=== PATIENT | male | born 1990 | race Caucasian/White ===

== ENCOUNTER 2016-11-29 23:51 | Inpatient (IN) | payer OTHER ==
--- NOTE | ~2016-11-29 | DS ---
Unit #: [id number] #: [id number] Patient: ANDI HERNÁNDEZ [id number] [facility] [address] [place] [address] [id number] I MR#: [id number] NAME: ANDI HERNÁNDEZ. ROOM: 86 Age: 26 Sex: M Admission Date: 11/29/2016 : 1990 Discharge Date: 12/02/2016 Attending Physician: Tye Zuleta M.D. Primary Care Physician: Primary Care Physician No DISCHARGE SUMMARY REASON FOR ADMISSION Anid is a 26-year-old man with a history of chemical dependence. He relapsed on opioids and has also been using IV methamphetamine. He had suicidal ideation with a plan to jump from a bridge and could not contract for safety. He was admitted for stabilization. HOSPITAL COURSE The patient was admitted and placed on the opioid detox protocol. He declined initiation of antidepressant medication and tolerated his detox with no significant adverse side effects. He had no further psychosis and suicidal ideation and on the date of discharge, he was able to contract for safety in the outpatient setting. DISCHARGE DIAGNOSES AXIS I: Opioid dependence with withdrawal, amphetamine dependence. AXIS II: No diagnosis. AXIS III: None acute. AXIS IV: AXIS V: DISCHARGE INSTRUCTIONS Follow up with chemical dependence programing through the intensive outpatient program at this facility as well as [facility] in [place], [place] when bed becomes available. DISCHARGE MEDICATIONS None. CONDITION AT DISCHARGE Improved. PROGNOSIS Good if the patient maintains sobriety and followup. DIET AND ACTIVITY Ad sabas. Dictated by... Tye Zuleta M.D. [facility] Unit #: [id number] #: [id number] Patient: ANDI HERNÁNDEZ TD: 02/06/2017 01:30 JOB #: [id number] DISCHARGE SUMMARY Page 1 of 1 X Tye Zuleta MD DISCHARGE SUMMARY
--- NOTE | ~2016-11-29 | PN ---
Unit #: [id number] #: [id number] Patient: ANDI HERNÁNDEZ [id number] [facility] [address] [place] [address] [id number] MR#: [id number] NAME: ANDI HERNÁNDEZ. ROOM: P186 Age: 26 Sex: M Admission Date: 11/29/2016 : 1990 Attending Physician: Tye Zuleta M.D. Admitting Physician: Tye Zuleta M.D. Primary Care Physician: Primary Care Physician Sona CAO PROGRESS NOTES DATE 12/01/2016 DISCUSSION Andi continues to show mild improvement today with ongoing detox symptoms but increase participation in unit groups and activities. He is alert and fully oriented. Memory and concentration are fair. Thought processes are logical with no active psychosis. ASSESSMENT Opiate dependence. PLAN Continue current treatment plan and encourage full participation in 12-step groups and activities. Dictated by... Neri FlanneryH/bzg TD: 12/01/2016 12:07 JOB #: [id number] [facility] PROGRESS NOTES X Tye Zuleta MD PROGRESS NOTE
--- NOTE | ~2016-11-29 | HP ---
Unit #: [id number] #: [id number] Patient: ANDI HERNÁNDEZ [id number] [place] [address] [id number] MR#: [id number] NAME: ANDI HERNÁNDEZ. ROOM: P186 Age: 26 Sex: M Admission Date: 11/29/2016 : 1990 Attending Physician: Tye Zuleta M.D. Admitting Physician: Tye Zuleta M.D. Primary Care Physician: Primary Care Physician No HISTORY AND PHYSICAL HISTORY OF PRESENT ILLNESS Andi is a 26 year old admitted to [facility] because of his continued drug use which included IV heroin and methamphetamine. He has had other admissions to this facility for treatment of the same. PAST MEDICAL HISTORY 1. Long history of IV drug use. 2. Hepatitis C. PAST SURGICAL HISTORY Nothing reported ALLERGIES Strattera SOCIAL HISTORY Smokes one-half pack per day. Denies alcohol, admits to a long history of illicit drug use to include IV drugs. FAMILY HISTORY Medically noncontributory. REVIEW OF SYSTEMS CONSTITUTIONAL: No fever or chills. HEENT: Denies any sore throat, ear pain or runny nose. CARDIOVASCULAR: Denies chest pain, irregular heart rhythm or palpitations. CHEST: Denies shortness of breath or cough. No hemoptysis. GASTROINTESTINAL: Denies nausea, vomiting, diarrhea or chronic constipation. ENDOCRINE: Denies history of increased thirst or urination. No recent significant weight loss or gain. GENITOURINARY: Denies dysuria, frequency, or hematuria. SKIN: Denies any rashes. HEMATOLOGIC: Denies history of increased bleeding or bruising. MUSCULOSKELETAL: Denies any hot, swollen joints. No generalized muscle pain. NEUROLOGIC: Denies problems with vision or speech. No frequent, severe headaches. No numbness, tingling or weakness in any extremities. Denies loss of bladder or bowel control. CURRENT MEDICATIONS Unit #: [id number] #: [id number] Patient: ANDI HERNÁNDEZ Detox protocol. PHYSICAL EXAMINATION GENERAL: Alert, well-nourished, in no apparent distress. VITAL SIGNS: Blood pressure 100/64, heart rate 80, respirations 16, temperature 98.6. WEIGHT: 145 pounds. HEIGHT: 6'0". SKIN: Warm and dry without rash or lesion. HEENT: Normocephalic. TMs not viewed. Oral and nasal passages clear. Conjunctivae clear. Pupils equal, round and reactive to light and accommodation. Extraocular movements intact. NECK: Supple without lymphadenopathy or thyromegaly. HEART: Regular rate and rhythm without murmur. LUNGS: Clear. ABDOMEN: Soft, nontender. : Not done. EXTREMITIES: No evidence of cyanosis, clubbing or edema. Moves all extremities without focal deficit. NEUROLOGICAL: Grossly within normal limits. Cranial Nerves: II: Visual thomas are intact. III, IV AND : Extraocular movements are intact. Pupils are equal, round and reactive to light. V: Facial sensation is grossly normal. VII: Facial movements and expression are normal. VIII: Auditory acuity grossly intact. IX, X: Uvula is midline. Phonation is normal. XI: Patient shrugs shoulders and turns head normally. XII: Tongue protrudes in the midline. Sensory and Motor Function: Sensory and motor sensation is grossly normal. Motor: moves all extremities well. Coordination: Gait is normal. Deep Tendon Reflexes: Intact. IMPRESSION Psychiatric admission RECOMMENDATIONS PSYCHIATRIC: Per psychiatrist. MEDICAL: I see no contraindications to participating in facility's activities. MEDICAL PROGNOSIS Good. MEDICAL CONDITION Stable. Dictated by... Salo FariasALogan-Robert. for Neri Broussard/ish TD: 11/30/2016 21:14 JOB #: [id number] Unit #: [id number] #: [id number] Patient: ANDI HERNÁNDEZ HISTORY AND PHYSICAL X Jenn Bonilla X HISTORY AND PHYSICAL
--- NOTE | ~2016-11-29 | PA ---
Unit #: [id number] #: [id number] Patient: ANDI HERNÁNDEZ [id number] [place] [address] [id number] MR#: [id number] NAME: ANDI HERNÁNDEZ. ROOM: P186 Age: 26 Sex: M Admission Date: 11/29/2016 : 1990 Date of Assessment: 11/30/2016 Attending Physician: Tye Zuleta M.D. Admitting Physician: Tye Zuleta M.D. Primary Care Physician: Primary Care Physician No PSYCHIATRIC ASSESSMENT DATE OF SERVICE 11/30/2016. INFORMANTS The patient, reliable; OLOP, reliable. CHIEF COMPLAINT "I really need to get off drugs." HISTORY OF PRESENT ILLNESS Andi is a 26-year-old man with a history of chemical dependence, who reports that he relapsed on opiates several months ago and has been using 0.5 mg of IV heroin and IV methamphetamine each daily. He had suicidal ideation with a plan to jump off a bridge and could not contract for safety. He was admitted for stabilization. PAST PSYCHIATRIC HISTORY Last admission to this facility was several months ago under similar circumstances. He reports a history of bipolar disorder, but has been erratically compliant with medications. He does report previous treatment at [facility] for chemical dependence as well. FAMILY PSYCHIATRIC HISTORY There is a family history of chemical dependence and he reports some mood lability as well. Clear diagnoses are not available. SOCIAL HISTORY The patient is a high-school graduate who is currently unemployed and homeless. He is estranged from his family due to ongoing problems with drug use. PAST MEDICAL HISTORY Significant for previous exposure to hepatitis C. MEDICATIONS None currently. ALLERGIES No known medication allergies. SUBSTANCE ABUSE HISTORY As noted, the patient has a history of abusing multiple substances including heroin and methamphetamine. Unit #: [id number] #: [id number] Patient: ANDI HERNÁNDEZ MENTAL STATUS EXAMINATION Laci presented as a disheveled man who appeared his stated age. He was cooperative with the examination. Vital signs were temperature 98.4, blood pressure 100/68, respirations 18, and pulse 96. His speech was spontaneous and easily understood. Musculoskeletal examination was mildly agitated. His mood was anxious with a congruent affect. He was alert and fully oriented. Memory and concentration were fair to good. Thought processes were goal directed with no evidence of psychosis. He did report ongoing suicidal ideation, but contracted for safety in the hospital. Insight and judgment, fair. Fund of knowledge and abstraction, fair. ASSETS AND LIABILITIES The patient knows local resources and presents voluntarily for treatment. Liabilities include difficulty maintaining sobriety and lack of stable housing and income. ADMITTING DIAGNOSES AXIS I: Opioid dependence with withdrawal, uncomplicated, F11.23; bipolar disorder by report. AXIS II: No diagnosis. AXIS III: None. AXIS IV: AXIS V: PSYCHIATRIC PLAN Laci was admitted and placed on suicide precautions and the opioid detox protocol. We will monitor his mental state and restart psychiatric medications as indicated. He will enroll in dual diagnosis groups and activities. A physical examination will also be performed. TREATMENT GOALS Resolution of SI, improvement in insight, and improvement in coping skills, and establishment of sobriety. DISCHARGE PLANNING Followup with [facility] for both mental health and chemical dependence treatment. ESTIMATED LENGTH OF STAY 5 days. Dictated by... Tye Zuleta M.D. [facility]/marita TD: 12/01/2016 06:09 JOB #: [id number] Unit #: [id number] #: [id number] Patient: ANDI HERNÁNDEZ PSYCHIATRIC ASSESSMENT X Tye Zuleta MD X PSYCHIATRIC ASSESSMENT
[~2016-11-29 23:51] MED LIST: FLEXERIL10 MG PO; ORUDIS75 M1 DOB
[2016-11-30 12:30] LABS: BASOPHIL# 0.1 X10e3 (0-0.3); BASOPHIL% 1.4 % (0-2.5); EOSINOPHIL# 0.5 X10e3 (0-0.7); EOSINOPHIL% 11.3 % (0.0-7.0); HEMATOCRIT 41.3 % (38.0-50.0); HEMOGLOBIN 13.7 gm/dL (13.0-16.0); LYMPHOCYTE# 1.5 X10e3 (1.0-3.5); LYMPHOCYTE% 34.6 % (17.0-45.0); MEAN CELL VOLUME 90.1 FL (83-96); MEAN CORPUSCULAR HEMOGLOBIN 29.9 PG (28-34); MEAN CORPUSCULAR HGB CONC 33.2 g/dL (30-36); MEAN PLATELET VOLUME 7.8 FL (6.5-11.5); MONOCYTE# 0.6 X10e3 (0-1.0); MONOCYTE% 14.4 % (3.0-12.0); NEUTROPHIL# 1.7 X10e3 (1.5-7.1); NEUTROPHIL% 38.3 % (40-75); PLATELET COUNT 189 X10e3 (140-420); RED BLOOD COUNT 4.59 X10e (3.90-5.60); RED CELL DISTRIBUTION WIDTH 13.6 % (11.0-15.5); WHITE BLOOD COUNT 4.4 X10e3 (4.0-10.5)
[2016-11-30 12:40] LABS: DIFF IND NO
[2016-11-30 12:49] LABS: ALBUMIN SERUM 3.7 g/dL (3.5-5.0); ALKALINE PHOSPHATASE 47 U/L (32-92); ALT (SGPT) 20 U/L (10-40); AST (SGOT) 22 U/L (10-42); BILIRUBIN,TOTAL 0.3 mg/dL (0.2-2.0); BLOOD UREA NITROGEN 20 mg/dL (9-23); BUN/CREATININE RATIO 28.57; CARBON DIOXIDE 28 mmol/L (22-31); CHLORIDE 107 mmol/L (100-111); CREATININE SERUM 0.7 mg/dL (0.6-1.4); GLOM FILT RATE Estimated ABOVE60 mL/min (>60); GLUCOSE FASTING 89 mg/dL (70-110); POTASSIUM 4.7 mmol/L (3.5-5.1); PROTEIN TOTAL SERUM 6.1 g/dL (6.0-8.3); SODIUM 140 mmol/L (135-145)
[2016-11-30 12:55] LABS: THYROID STIMULATING HORMONE 0.35 uIU/ml (0.34-5.60)
[2016-11-30 13:02] LABS: FREE THYROXIN (T4) 1.08 ng/dL (0.58-1.64)
[2016-12-01 10:40] LABS: URINE APPEARANCE CLOUDY; URINE BILIRUBIN NEG (NEG); URINE BLOOD NEG (NEG); URINE COLOR DK YELLOW; URINE GLUCOSE NEG (NEG); URINE KETONE NEG (NEG); URINE LEUKOCYTE ESTERASE NEG (NEG); URINE NITRATE NEG (NEG); URINE PH 7.5 (5-8); URINE PROTEIN NEG (NEG); URINE SPECIFIC GRAVITY 1.023 (1.003-1.035)
[2016-12-01 11:09] LABS: AMPHETAMINE POS (NEG); BARBITURATES NEG (NEG); BENZODIAZEPINES NEG (NEG); COCAINE NEG (NEG); MARIJUANA NEG (NEG); OPIATES POS (NEG); TRICYCLIC ANTIDEPRESSANTS NEG (NEG); U METHADONE NEG (NEG)
== END 2016-12-02 13:30 | disposition home or self-care (01) | DRG 897 ==
LOC: P1S 23:51 → P1E 11-30 01:06
PROVIDERS: Psychiatry & Neurology Psychiatry
PROC: HZ2ZZZZ Detoxification Services for Substance Abuse Treatment (ICD-10-PCS; principal; 2016-11-30)
DX: F11.23 Opioid dependence with withdrawal (principal); F31.9 Bipolar disorder, unspecified; B19.20 Unspecified viral hepatitis C without hepatic coma; F17.200 Nicotine dependence, unspecified, uncomplicated
CPT/HCPCS: 80053; 80307; 81003; 84439; 84443; 85025; 86592